=== PATIENT | male | born 1990 | race African-American/Black ===

== ENCOUNTER 2017-02-04 20:34 | Emergency (ER) | payer OTHER ==
[~2017-02-04] VITALS: Ht 188 cm; Wt 81.6 kg
--- NOTE | ~2017-02-04 | EKG ---
PATIENT: SHELLEY BREWSTER UNIT #: [id number] Ventricular Rate: 65 BPM Atrial Rate: 65 BPM P-R Interval: 140 ms QRS Duration: 92 ms Q-T Interval: 388 ms QTC Calculation(Bezet): 403 ms P [place]: 65 degrees Calculated R [place]: 93 degrees Calculated T [place]: 58 degrees Diagnosis Line: Normal sinus rhythm Diagnosis Line: Rightward axis Diagnosis Line: Nonspecific ST abnormality Diagnosis Line: Abnormal ECG Diagnosis Line: No previous ECGs available Diagnosis Line: Confirmed by YENNY MESA MD ([id number]) on 02/05/2017 Diagnosis Line: 11:04:12 PM INTERPRETING MD: MOSHE FOSTER
[2017-02-04 21:33] LABS: BASOPHIL% 0.3 % (0-2.5); EOSINOPHIL% 0.7 % (0.0-7.0); HEMATOCRIT 47.7 % (38.0-50.0); HEMOGLOBIN 15.9 gm/dL (13.0-16.0); LYMPHOCYTE# 1.8 X10e3 (1.0-3.5); LYMPHOCYTE% 34.5 % (17.0-45.0); MEAN CELL VOLUME 94.3 FL (83-96); MEAN CORPUSCULAR HEMOGLOBIN 31.4 PG (28-34); MEAN CORPUSCULAR HGB CONC 33.3 g/dL (30-36); MEAN PLATELET VOLUME 6.4 FL (6.5-11.5); MONOCYTE# 0.4 X10e3 (0-1.0); MONOCYTE% 7.4 % (3.0-12.0); NEUTROPHIL% 57.1 % (40-75); PLATELET COUNT 265 X10e3 (140-420); RED BLOOD COUNT 5.06 X10e (3.90-5.60); RED CELL DISTRIBUTION WIDTH 13.7 % (11.0-15.5); WHITE BLOOD COUNT 5.2 X10e3 (4.0-10.5)
[2017-02-04 21:34] LABS: DIFF IND NO
[2017-02-04 22:00] LABS: BUN/CREATININE RATIO 8.33; CALCIUM SERUM 8.7 mg/dL (8.4-10.2); CREATININE SERUM 1.2 mg/dL (0.6-1.4); GLOM FILT RATE Estimated 97.5 mL/min (>60)
[2017-02-04 22:58] LABS: POC - CKMB <1.0 ng/mL (0.0-7.9); POC - TROPONIN <0.05 ng/mL (<=0.05)
== END 2017-02-04 23:11 | disposition home or self-care (01) ==
LOC: CED 20:34
PROVIDERS: Emergency Medicine
DX: R55 Syncope and collapse (principal); Z88.0 Allergy status to penicillin
CPT/HCPCS: 36415; 80048; 82553; 82947; 84484; 85025; 93005; 96360; 99284